=== PATIENT | male | born 1965 | race Caucasian/White ===

== ENCOUNTER → 2016-05-19 | Outpatient (CLI) | payer OTHER ==
[~2016-05-19] MED LIST: ATIVAN1 MG PO; CATAPRES 0.1MG0.1 MG PO; ELAVIL 50 MG TA50 MG PO; ELIQUIS 2.5 MG2.5 MG PO; FERROUS SULFAT325 M2 PO; LEVAQUIN750 MG PO; LOPRESSOR 25 MG25 MG PO; PERCOCET 10-321 EACH PO; THERAGRAN TAB1 EA PO; XARELTO10 MG PO
== END ==
LOC: RAD 09:08
DX: M25.552 Pain in left hip (principal); M25.551 Pain in right hip; H66.90 Otitis media, unspecified, unspecified ear; Z96.643 Presence of artificial hip joint, bilateral
CPT/HCPCS: 70260; 73522

== ENCOUNTER → 2016-06-10 | Outpatient (CLI) | payer OTHER | LOC: LBRF 12:35 | DX: H93.13 Tinnitus, bilateral (principal) | CPT/HCPCS: 87070; 87077; 87186; 87205 ==

== ENCOUNTER 2016-07-12 14:28 | Emergency (ER) | payer OTHER ==
[2016-07-12 15:29] LABS: HEMOGLOBIN 16.2 gm/dl (14.0-17.5); RED BLOOD COUNT 5.24 M/UL (4.20-5.50); WHITE BLOOD COUNT 11.4 K/UL (4.5-11.0)
[2016-07-12 15:52] LABS: BUN/CREATININE RATIO 12 (0-10)
== END 2016-07-12 21:25 ==
LOC: ER1 14:28
PROVIDERS: Emergency Medicine
DX: K29.00 Acute gastritis without bleeding (principal); N28.89 Other specified disorders of kidney and ureter; R31.9 Hematuria, unspecified; I10 Essential (primary) hypertension; F17.200 Nicotine dependence, unspecified, uncomplicated; Z88.0 Allergy status to penicillin; Z79.899 Other long term (current) drug therapy
CPT/HCPCS: 36415; 80053; 81001; 82150; 83690; 85025; 96374; 96375; 96376; 99285; C9113; J2060; J2270; J2405; J2550; J7050; Q9962

== ENCOUNTER → 2016-07-20 | Outpatient (CLI) | payer OTHER ==
[2016-07-20 08:24] LABS: HEMOGLOBIN 14.2 gm/dl (14.0-17.5); RED BLOOD COUNT 4.65 M/UL (4.20-5.50); WHITE BLOOD COUNT 6.2 K/UL (4.5-11.0)
== END ==
LOC: NM 07-14 09:00
PROVIDERS: Nurse Practitioner
DX: M86.8X8 Other osteomyelitis, other site (principal); M70.72 Other bursitis of hip, left hip; E11.69 Type 2 diabetes mellitus with other specified complication
CPT/HCPCS: 36415; 78315; 82565; 85027; 86140; A9503

== ENCOUNTER → 2016-07-25 | Outpatient (CLI) | payer OTHER ==
[2016-07-25 12:17] LABS: TOTAL PROTEIN, BODY FLUID 0.2 gm/dL
== END ==
LOC: RAD 07-20 09:00
PROVIDERS: Nurse Practitioner
PROC: 3E0U3GC Introduction of Other Therapeutic Substance into Joints, Percutaneous Approach (ICD-10-PCS; principal; 2016-07-25)
DX: M70.72 Other bursitis of hip, left hip (principal); E11.69 Type 2 diabetes mellitus with other specified complication
CPT/HCPCS: 82945; 84157; 87070; 87205; 89051; 89060; Q9962

== ENCOUNTER 2016-08-15 13:54 | Emergency (ER) | payer OTHER ==
[2016-08-15 15:37] LABS: HEMOGLOBIN 14.5 gm/dl (14.0-17.5); RED BLOOD COUNT 4.81 M/UL (4.20-5.50); WHITE BLOOD COUNT 8.4 K/UL (4.5-11.0)
[2016-08-15 15:40] LABS: BUN/CREATININE RATIO 11 (0-10)
== END 2016-08-15 18:40 | disposition home or self-care (01) ==
LOC: ER1 13:54
PROVIDERS: Physician Assistant
DX: K59.00 Constipation, unspecified (principal); C64.9 Malignant neoplasm of unspecified kidney, except renal pelvis; R31.9 Hematuria, unspecified; F17.210 Nicotine dependence, cigarettes, uncomplicated; Z88.0 Allergy status to penicillin; Z79.899 Other long term (current) drug therapy
CPT/HCPCS: 36415; 80053; 81001; 83690; 85025; 96361; 96374; 96375; 96376; 99284; J2270; J2405; J7030

== ENCOUNTER 2016-08-20 17:18 | Emergency (ER) | payer OTHER ==
[2016-08-20 19:12] LABS: RED BLOOD COUNT 4.65 M/UL (4.20-5.50); WHITE BLOOD COUNT 9.8 K/UL (4.5-11.0)
[2016-08-20 19:32] LABS: BUN/CREATININE RATIO 17 (0-10)
== END 2016-08-20 21:15 | disposition home or self-care (01) ==
LOC: ER1 17:18
PROVIDERS: Physician Assistant
DX: K20.9 Esophagitis, unspecified (principal); K29.70 Gastritis, unspecified, without bleeding; K59.00 Constipation, unspecified; N28.89 Other specified disorders of kidney and ureter; Z88.0 Allergy status to penicillin
CPT/HCPCS: 36415; 71010; 80053; 80307; 81001; 82550; 82553; 83690; 83874; 84484; 85025; 87086; 96361; 96372; 96374; 96375; 96376; 99284; C9113; J1200; J2270; J2405; Q9962